=== PATIENT | female | born 1990 | race Caucasian/White ===

== ENCOUNTER 2016-12-02 00:14 | Emergency (ER) | payer MEDICAID ==
[~2016-12-02] VITALS: Ht 172.7 cm; Wt 65.9 kg
[~2016-12-02 00:14] MED LIST: PREN1TAB80 PO
[2016-12-02] MEDS ORDERED: IBUPROFEN 600 MG TABLET PO ONE (01:30)
[2016-12-02] MEDS ORDERED: HYDROCODONE/ACETAMINOPHEN 5-325 MG TABLET PO ONE (01:30)
[2016-12-02 01:57] VITALS: BP 129/88
== END 2016-12-02 02:00 | disposition home or self-care (01) ==
LOC: EDUNIT# 00:14 → EMS 00:16
DX: S92.352A Displaced fracture of fifth metatarsal bone, left foot, initial encounter for closed fracture (principal); X58.XXXA Exposure to other specified factors, initial encounter; Y93.41 Activity, dancing; Y92.59 Other trade areas as the place of occurrence of the external cause; Y99.8 Other external cause status
CPT/HCPCS: 29515; 81025; 99284

== ENCOUNTER 2017-04-22 09:10 | Emergency (ER) | payer MEDICAID ==
[~2017-04-22] VITALS: Ht 172.7 cm; Wt 52.0 kg
[2017-04-22] MEDS ORDERED: ACETAMINOPHEN 500 MG TABLET PO ONE (11:45)
[2017-04-22 11:52] VITALS: BP 101/59
== END 2017-04-22 12:22 | disposition home or self-care (01) ==
LOC: EMS 09:11
DX: O9A.219 Injury, poisoning and certain other consequences of external causes complicating pregnancy, unspecified trimester (principal); S00.83XA Contusion of other part of head, initial encounter; Z3A.00 Weeks of gestation of pregnancy not specified; Y04.2XXA Assault by strike against or bumped into by another person, initial encounter; Y93.89 Activity, other specified; Y92.89 Other specified places as the place of occurrence of the external cause; Y99.8 Other external cause status
CPT/HCPCS: 81025; 99282; 99283